=== PATIENT | male | born 1980 | race Two or more races ===

== ENCOUNTER 2022-01-04 06:20 | Inpatient (IN) | payer OTHER ==
[~2022-01-04] VITALS: Ht 167.6 cm; Wt 72.1 kg
--- NOTE | 2022-01-04 10:00 | NUR ---
MS PRODUCT DEVELOPMENT ACTUARY NOTES ADMITTED A 41 YO MALE PATIENT FRO M SALINAS , A/O X 4 , ROOM AIR WITH NO SOB OR DISTRESS NOTED , ABLE TO MAKE NEEDS KNOWN , BODY ASSESSMENT DONE AND PHOTOS TAKEN ,NOTED WITH L AND R DELTOID SWELLING AND L BICEP SWELLING , WITH LEFT UA #14 SL AND STARTED ON IV HYDRATION OF OF NS @75 CC/ H , METHADONE 75MG ORDERED BY DR SHEIKH PER PATIENT HES GETTING IT FROM A [facility] FAXED THE ORDER AND VERIFIED WITH MD , V/S TAKEN AND RECORDED , BED IN LOWEST POSITION , SAFETY PRECAUTIONS PROVIDED , WILL CONTINUE TO MONITOR
[2022-01-04] MEDS: IV NS 0.9% 1,000 ML IV PRN ×2 (10:30→21:26)
[2022-01-04 12:00] VITALS: BP 114/71
[2022-01-04] MEDS ORDERED: MAG HYDROX/AL HYDROX/SIMETH 30 ML UDC PO PRN (14:00)
[2022-01-04] MEDS ORDERED: ONDANSETRON HCL/PF 4 MG/2 ML VIAL IVP PRN (14:00)
[2022-01-04] MEDS ORDERED: MAGNESIUM HYDROXIDE 30 ML UDC PO PRN (14:00)
[2022-01-04] MEDS ORDERED: Z GUARD REMEDY 4 OZ OINT TP PRN (14:00)
[2022-01-04] MEDS ORDERED: ACETAMINOPHEN 325 MG TABLET PO PRN (14:00)
[2022-01-04] MEDS: METHADONE HCL 10 MG TABLET PO SCH (14:45)
[2022-01-04] MEDS ORDERED: VANCOMYCIN 1.25 GM in IV D5W 250 ML IV ONE (15:00)
[2022-01-04 16:00] VITALS: BP 126/74
[2022-01-04 16:13] LABS: BASOPHILS % (AUTO) 0.2 % (0.0-2.0); EOSINOPHILS % (AUTO) 3.5 % (0.0-6.0); HEMATOCRIT 33 % (39-51); HEMOGLOBIN 10.7 g/dL (13.5-17.5); LYMPHOCYTES # (AUTO) 1.1 K/uL (0.8-4.8); MEAN CORPUSCULAR HGB CONC 33 g/dl (31.0-36.0); MEAN CORPUSCULAR VOLUME 85 fL (80-96); MONOCYTES # (AUTO) 0.7 K/uL (0.1-1.30); MONOCYTES % (AUTO) 11.1 % (2.0-12.0); NEUTROPHILS # (AUTO) 4.4 K/uL (1.8-8.9); NEUTROPHILS % (AUTO) 68.2 % (43.0-81.0); PLATELET COUNT (AUTO) 357 K/uL (150-450); RED BLOOD CELL COUNT(AUTO) 3.85 MIL/uL (4.5-6.0); WHITE BLOOD COUNT (AUTO) 6.5 K/uL (4.3-11.0)
[2022-01-04 16:45] LABS: CALCIUM, SERUM 8.5 mg/dL (8.5-10.1); CREATININE 2.2 mg/dL (0.6-1.3); POTASSIUM 4.2 mmol/L (3.5-5.1)
--- NOTE | 2022-01-04 19:12 | NUR ---
MS RN CLOSING NOTES PATIENT ON BED AWAKE . A/O X4 , ROOM AIR NO SOB OR DISTRESS NOTED , WITH IV ATB OF VANCOMYCIN GIVEN . MRSA BOTH NARES SWAB DONE AND COVID TESTING DONE , LUCIE #14G SL AND CONT WITH HYDRATION OF NS @125ML /HOUR , METHADONE 75MG GIVEN ORDERED AND EFFECTIVE , SAFETY PRECAUTIONS PROVIDED AND WILL ENDORSED TO NEXT SHIFT
--- NOTE | 2022-01-04 19:45 | NUR ---
MS RN NOTES RECEIVED LAYING ON BED A/O X4, AT BEDSIDE.NOTED SWELLING RIGHT AND LEFT DELTOID, WELL LEFT BICEPS.PRESENT IVF NS AT 125ML/HR RATE INFUSING WELL LEFT ARM VIA IV PUMP.PER REPORT ,PATIENT WS HEROINE USER.WILL CONTINUE TO MONITOR STATUS.
[2022-01-04 20:00] VITALS: BP 105/49
[2022-01-05] MEDS: IV NS 0.9% 1,000 ML IV PRN (06:09)
--- NOTE | 2022-01-05 06:42 | NUR ---
MS RN NOTES SLEEP WELL AT NIGHT.IVF INFUSING WELL ON LEFT UPPER ARM SALINE LOCK VIA IV PUMP.IN NO ACUTE DISTRESS,CALL LIGHT IN REACH,NEEDS ATTENDED.
[2022-01-05 07:06] LABS: CALCIUM, SERUM 8.4 mg/dL (8.5-10.1); CREATININE 2.4 mg/dL (0.6-1.3); MAGNESIUM 2.6 mg/dL (1.8-2.4); PHOSPHORUS 3.8 mg/dL (2.5-4.9); POTASSIUM 4.6 mmol/L (3.5-5.1)
--- NOTE | 2022-01-05 07:30 | NUR ---
MS RN OPENING NOTES RECEIVED PATIENT ON BED, AWAKE AND A/O X4. ON ROOM AIR TOLERATING WELL. NO SOB NOTED. NOT IN DISTRESS. WITH NO COMPLAINTS OF PAIN OR DISCOMFORT AT THIS TIME. WITH IV ACCESS AT THE LEFT UPPER ARM G14 WITH NS RUNNING AT 125ML/HR INFUSING WELL. SAFETY MEASURES IN PLACED. CALL LIGHT WITHIN REACH. BED ON LOWEST LOCKED POSITION, SIDE RAILS UP X2. WILL CONTINUE TO MONITOR.
[2022-01-05 08:34] VITALS: BP 132/64
[2022-01-05] MEDS: METHADONE HCL 10 MG TABLET PO SCH (09:33)
[2022-01-05 10:07] LABS: BASOPHILS % (AUTO) 0.4 % (0.0-2.0); EOSINOPHILS % (AUTO) 3.8 % (0.0-6.0); HEMATOCRIT 31 % (39-51); HEMOGLOBIN 10.5 g/dL (13.5-17.5); LYMPHOCYTES # (AUTO) 1.3 K/uL (0.8-4.8); LYMPHOCYTES % (AUTO) 23.1 % (20.0-44.0); MEAN CORPUSCULAR HGB CONC 34 g/dl (31.0-36.0); MEAN CORPUSCULAR VOLUME 87 fL (80-96); MONOCYTES # (AUTO) 0.4 K/uL (0.1-1.30); MONOCYTES % (AUTO) 7.7 % (2.0-12.0); NEUTROPHILS # (AUTO) 3.8 K/uL (1.8-8.9); PLATELET COUNT (AUTO) 286 K/uL (150-450); RED BLOOD CELL COUNT(AUTO) 3.57 MIL/uL (4.5-6.0); WHITE BLOOD COUNT (AUTO) 5.8 K/uL (4.3-11.0)
[2022-01-05] MEDS ORDERED: CLIN300C12 PO (10:48)
--- NOTE | 2022-01-05 12:00 | NUR ---
MS SUPPLY CHAIN TECH NOTES PATIENT WAS SEEN BY DR. SHEIKH AND ORDERED FOR DISCHARGE. PATIENT IS FOR DISCHARGE TO HOME. DISCHARGE INSTRUCTION AND EDUCATION PROVIDED TO PATIENT AND EXPLAINED MEDICATIONS AND PRESCRIPTIONS. PATIENT VERBALIZED UNDERSTANDING. DISCHARGE FORM AND BELONGINGS LIST FORM SIGNED BY PATIENT. ALL BELONGINGS ACCOUNTED FOR. NAME WRIST BAND AND IV LINE REMOVED. ACCOMPANIED PATIENT TO THE [facility] IN STABLE CONDITION. MD AND CHARGE NURSE ARE AWARE OF THE DISCHARGE.
[2022-01-05] MEDS ORDERED: VANCOMYCIN 1.25 GM in IV D5W 250 ML IV SCH (15:00)
== END 2022-01-05 12:00 | disposition home or self-care (01) | DRG 469 ==
LOC: MED 08:45
PROVIDERS: ADMIT Internal Medicine; ATTEND Internal Medicine
DX: N17.0 Acute kidney failure with tubular necrosis (principal); M62.82 Rhabdomyolysis; E86.0 Dehydration; Z20.822 Contact with and (suspected) exposure to COVID-19; L02.413 Cutaneous abscess of right upper limb; F11.20 Opioid dependence, uncomplicated
CPT/HCPCS: 36415; 80048-TC; 83735-TC; 84100-TC; 85025-TC; 87081-TC; G0378; J3370; J7030; J7060